=== PATIENT | male | born 1940 | race Caucasian/White ===

== ENCOUNTER 2024-01-11 09:14 | Inpatient (IN) | payer BC, OTHER ==
[~2024-01-11] VITALS: Ht 180.3 cm; Wt 99.8 kg
[2024-01-11 09:25] VITALS: BP 106/52; PULSE 92; RESP 19; TEMP 97.9; O2SAT 96
[2024-01-11 10:57] LABS: BASOPHILS # (AUTO) 0.1 K/uL (0.00-0.22); BASOPHILS % (AUTO) 0.4 % (0.0-2.0); EOSINOPHILS # (AUTO) 0.1 K/uL (0-0.4); EOSINOPHILS % (AUTO) 0.6 % (0.0-4.0); HEMATOCRIT 33.6 % (36-52); HEMOGLOBIN 11.2 g/dL (12.0-18.0); LYMPHOCYTES # (AUTO) 1.3 K/uL (2.0-11.5); LYMPHOCYTES % (AUTO) 8.7 % (20.5-51.1); MEAN CORPUSCULAR HEMOGLOBIN 29 pg (27-31); MEAN CORPUSCULAR HGB CONC 33 g/dL (33-37); MEAN CORPUSCULAR VOLUME 86.6 fL (80-94); MONOCYTES # (AUTO) 1.3 K/uL (0.8-1.0); MONOCYTES % (AUTO) 8.9 % (1.7-9.3); NEUTROPHILS # (AUTO) 11.9 K/uL (1.8-7.7); NEUTROPHILS % (AUTO) 81.4 % (42.2-75.2); PLATELET COUNT (AUTO) 286 K/uL (140-450); RED BLOOD CELL COUNT(AUTO) 3.89 MIL/uL (4.20-6.10); WHITE BLOOD COUNT (AUTO) 14.6 K/uL (4.8-10.8)
[2024-01-11] MEDS: NACL 0.9% 1,000 ML IV SCH (11:00)
[2024-01-11 11:15] LABS: ANION GAP 11.9 (8-16); CALCIUM 9.6 mg/dL (8.5-10.1); CARBON DIOXIDE 29.4 mmol/L (21-32); CHLORIDE 99 mmol/L (98-107); GLUCOSE 135 mg/dL (74-106); POTASSIUM 4.3 mmol/L (3.5-5.1); SODIUM SERUM 136 mmol/L (136-145); UREA NITROGEN, BLOOD 44 mg/dL (7-18)
[2024-01-11 11:16] LABS: INR 1.2 (0.8-1.2); PARTIAL THROMBOPLASTIN TIME 38.5 secs (22-35.6); PROTHROMBIN TIME 12.5 secs (10.8-13.4)
[2024-01-11 11:22] LABS: ALANINE AMINOTRANSFERASE 88 U/L (12-78); ALBUMIN 2.3 g/dL (3.4-5.0); ALKALINE PHOSPHATASE 304 U/L (50-136); ASPARTATE AMINOTRANSFERASE 84 U/L (15-37); BILIRUBIN,DIRECT 0.5 mg/dL (0.0-0.3); TOTAL PROTEIN, SERUM 6.9 g/dL (6.4-8.2)
[2024-01-11 11:25] LABS: LACTIC ACID 1.6 mmol/L (0.4-2.0)
[2024-01-11] MEDS ORDERED: cefTRIAXone 1,000 MG VIAL ONE (11:59)
[2024-01-11 12:07] LABS: APPEARANCE,URINE CLEAR (CLEAR); BILIRUBIN,URINE NEGATIVE (NEGATIVE); BLOOD, URINE 3+ (NEGATIVE); COLOR,URINE YELLOW (YELLOW); LEUKOCYTE ESTERASE ,URINE NEGATIVE (NEGATIVE); NITRITE, URINE NEGATIVE (NEGATIVE); PROTEIN,URINE NEGATIVE (NEGATIVE); UGLUCOSE NEGATIVE (NEGATIVE); UROBILINOGEN,URINE 0.2 EU/dL (0.2 - 1)
[2024-01-11] MEDS ORDERED: HYDR1CAP PO (12:19)
[2024-01-11] MEDS ORDERED: LORA-476 PO (12:19)
[2024-01-11] MEDS ORDERED: METF-1243 PO (12:19)
[2024-01-11] MEDS ORDERED: ATEN50TA8 PO (12:19)
[2024-01-11] MEDS ORDERED: BENA20TA PO (12:19)
[2024-01-11 12:26] LABS: RBC,URINE 20-50 /HPF (0-5); WBC,URINE 0-5 /HPF (0-5)
[2024-01-11 12:27] LABS: BACTERIA,URINE OCCASSIONAL /HPF (None Seen); SQUAMOUS EPITHELIAL CELL,UR 0-3 (FEW) /LPF (0-3 (FEW))
[2024-01-11] MEDS: LORazepam 1 MG TAB PO PRN (13:58)
[2024-01-11] MEDS: HYDROcodone/APAP 5/325 MG 1 TAB TAB PO PRN (13:59)
[2024-01-11 17:28] VITALS: PULSE 72; RESP 18; O2SAT 96
[2024-01-11 20:00] VITALS: BP 118/52; PULSE 66; PULSE 73; RESP 16; TEMP 97; O2SAT 95
[2024-01-12] VITALS (7 sets, daily range): BP systolic 116–140; BP diastolic 52–79; PULSE 68–101; RESP 16–20; TEMP 96.9–98.9; O2SAT 95–100
[2024-01-12 05:38] LABS: BASOPHILS # (AUTO) 0.1 K/uL (0.00-0.22); BASOPHILS % (AUTO) 0.9 % (0.0-2.0); EOSINOPHILS # (AUTO) 0.2 K/uL (0-0.4); EOSINOPHILS % (AUTO) 1.4 % (0.0-4.0); HEMATOCRIT 31.2 % (36-52); HEMOGLOBIN 10.2 g/dL (12.0-18.0); LYMPHOCYTES # (AUTO) 1.3 K/uL (2.0-11.5); LYMPHOCYTES % (AUTO) 10.3 % (20.5-51.1); MEAN CORPUSCULAR HEMOGLOBIN 28 pg (27-31); MEAN CORPUSCULAR HGB CONC 33 g/dL (33-37); MEAN CORPUSCULAR VOLUME 85.5 fL (80-94); MONOCYTES # (AUTO) 1.3 K/uL (0.8-1.0); MONOCYTES % (AUTO) 10.2 % (1.7-9.3); NEUTROPHILS # (AUTO) 9.9 K/uL (1.8-7.7); NEUTROPHILS % (AUTO) 77.2 % (42.2-75.2); PLATELET COUNT (AUTO) 268 K/uL (140-450); RED BLOOD CELL COUNT(AUTO) 3.65 MIL/uL (4.20-6.10); RED CELL DISTRIBUTION WIDTH 15.1 % (11.6-13.7); WHITE BLOOD COUNT (AUTO) 12.8 K/uL (4.8-10.8)
[2024-01-12 06:13] LABS: ALANINE AMINOTRANSFERASE 80 U/L (12-78); ALBUMIN 2.1 g/dL (3.4-5.0); ALKALINE PHOSPHATASE 280 U/L (50-136); ASPARTATE AMINOTRANSFERASE 76 U/L (15-37); CALCIUM 9.2 mg/dL (8.5-10.1); CHLORIDE 101 mmol/L (98-107); CREATININE 1.5 mg/dL (0.6-1.3); GLUCOSE 106 mg/dL (74-106); SODIUM SERUM 137 mmol/L (136-145); TOTAL PROTEIN, SERUM 6.4 g/dL (6.4-8.2); UREA NITROGEN, BLOOD 31 mg/dL (7-18)
[2024-01-12] MEDS: DOCUSATE SODIUM 100 MG GELCAP PO SCH (08:19)
[2024-01-12] MEDS: AZITHROMYCIN 500 MG in DEXTROSE 5% 250 ML IV SCH (09:58)
[2024-01-12] MEDS: ONDANSETRON 4 MG/2 ML VIAL IVP PRN (18:10)
[2024-01-12] MEDS: BENAZEPRIL 20 MG TAB PO SCH (21:17)
[2024-01-13] VITALS (7 sets, daily range): BP systolic 113–140; BP diastolic 53–69; PULSE 72–98; RESP 16–20; TEMP 96.7–98.1; O2SAT 93–97
[2024-01-13 05:31] LABS: BASOPHILS # (AUTO) 0.1 K/uL (0.00-0.22); EOSINOPHILS # (AUTO) 0.2 K/uL (0-0.4); EOSINOPHILS % (AUTO) 1.9 % (0.0-4.0); HEMATOCRIT 31.9 % (36-52); HEMOGLOBIN 10.3 g/dL (12.0-18.0); LYMPHOCYTES # (AUTO) 1.5 K/uL (2.0-11.5); LYMPHOCYTES % (AUTO) 11.4 % (20.5-51.1); MEAN CORPUSCULAR HEMOGLOBIN 28 pg (27-31); MEAN CORPUSCULAR HGB CONC 32 g/dL (33-37); MEAN CORPUSCULAR VOLUME 86.4 fL (80-94); MONOCYTES # (AUTO) 1.4 K/uL (0.8-1.0); MONOCYTES % (AUTO) 10.7 % (1.7-9.3); NEUTROPHILS # (AUTO) 9.7 K/uL (1.8-7.7); PLATELET COUNT (AUTO) 262 K/uL (140-450); RED BLOOD CELL COUNT(AUTO) 3.69 MIL/uL (4.20-6.10); RED CELL DISTRIBUTION WIDTH 15.2 % (11.6-13.7)
[2024-01-13 06:21] LABS: ALBUMIN 2.1 g/dL (3.4-5.0); ALKALINE PHOSPHATASE 326 U/L (50-136); ANION GAP 11.5 (8-16); ASPARTATE AMINOTRANSFERASE 133 U/L (15-37); CALCIUM 8.9 mg/dL (8.5-10.1); CARBON DIOXIDE 29.3 mmol/L (21-32); CHLORIDE 100 mmol/L (98-107); GLUCOSE 111 mg/dL (74-106); POTASSIUM 3.8 mmol/L (3.5-5.1); SODIUM SERUM 137 mmol/L (136-145); TOTAL BILIRUBIN 1.1 mg/dL (0.0-1.0); TOTAL PROTEIN, SERUM 3.9 g/dL (6.4-8.2); UREA NITROGEN, BLOOD 22 mg/dL (7-18)
[2024-01-13 06:48] LABS: ALANINE AMINOTRANSFERASE 106 U/L (12-78); CREATININE 1.3 mg/dL (0.6-1.3)
[2024-01-13] MEDS: atenoloL 50 MG TAB PO SCH (08:42)
[2024-01-13] MEDS: ZOLPIDEM 5 MG TAB PO PRN (20:14)
[2024-01-14] VITALS: BP 111/55; PULSE 76; PULSE 86; TEMP 96.5; O2SAT 90
[2024-01-14 04:00] VITALS: BP 127/64; PULSE 81; PULSE 92; TEMP 96.1; O2SAT 90
[2024-01-14 05:42] LABS: BASOPHILS # (AUTO) 0.1 K/uL (0.00-0.22); BASOPHILS % (AUTO) 0.9 % (0.0-2.0); EOSINOPHILS # (AUTO) 0.2 K/uL (0-0.4); EOSINOPHILS % (AUTO) 1.5 % (0.0-4.0); HEMATOCRIT 32.6 % (36-52); HEMOGLOBIN 10.7 g/dL (12.0-18.0); LYMPHOCYTES # (AUTO) 1.6 K/uL (2.0-11.5); LYMPHOCYTES % (AUTO) 12.1 % (20.5-51.1); MEAN CORPUSCULAR HEMOGLOBIN 28 pg (27-31); MEAN CORPUSCULAR HGB CONC 33 g/dL (33-37); MEAN CORPUSCULAR VOLUME 86.6 fL (80-94); MONOCYTES # (AUTO) 1.4 K/uL (0.8-1.0); MONOCYTES % (AUTO) 10.7 % (1.7-9.3); NEUTROPHILS # (AUTO) 10.2 K/uL (1.8-7.7); NEUTROPHILS % (AUTO) 74.8 % (42.2-75.2); PLATELET COUNT (AUTO) 262 K/uL (140-450); RED BLOOD CELL COUNT(AUTO) 3.77 MIL/uL (4.20-6.10); RED CELL DISTRIBUTION WIDTH 14.9 % (11.6-13.7); WHITE BLOOD COUNT (AUTO) 13.6 K/uL (4.8-10.8)
[2024-01-14 06:09] LABS: ALANINE AMINOTRANSFERASE 95 U/L (12-78); ALBUMIN 2.1 g/dL (3.4-5.0); ALKALINE PHOSPHATASE 309 U/L (50-136); ANION GAP 12.1 (8-16); ASPARTATE AMINOTRANSFERASE 98 U/L (15-37); CALCIUM 8.9 mg/dL (8.5-10.1); CARBON DIOXIDE 28.7 mmol/L (21-32); CHLORIDE 100 mmol/L (98-107); CREATININE 1.2 mg/dL (0.6-1.3); GLUCOSE 110 mg/dL (74-106); POTASSIUM 3.8 mmol/L (3.5-5.1); SODIUM SERUM 137 mmol/L (136-145); TOTAL BILIRUBIN 1.1 mg/dL (0.0-1.0); TOTAL PROTEIN, SERUM 6.4 g/dL (6.4-8.2); UREA NITROGEN, BLOOD 19 mg/dL (7-18)
[2024-01-14 08:00] VITALS: PULSE 67; RESP 18; O2SAT 90
[2024-01-14 08:10] VITALS: BP 117/63; PULSE 67; TEMP 96.7; O2SAT 90
[2024-01-14 09:32] VITALS: BP 117/63; PULSE 67; RESP 18; TEMP 96.7
[2024-01-14 12:34] VITALS: BP 120/60; PULSE 86; TEMP 97; O2SAT 90
[2024-01-14] MEDS ORDERED: AZIT500T PO (14:23)
[2024-01-14] MEDS ORDERED: AMOX-999 PO (14:23)
[2024-01-14] MEDS ORDERED: MUC600 PO (14:24)
[2024-01-14] MEDS ORDERED: AZIT500T8 PO (16:17)
== END 2024-01-14 15:04 | disposition home health service (06) | DRG 871 ==
LOC: MED 09:14 → MTU 12:43
PROVIDERS: ADMIT Student in an Organized Health Care Education/Training Program; ATTEND Student in an Organized Health Care Education/Training Program
DX: A41.9 Sepsis, unspecified organism (principal); J18.9 Pneumonia, unspecified organism; N17.9 Acute kidney failure, unspecified; E44.0 Moderate protein-calorie malnutrition; R31.9 Hematuria, unspecified; Z68.30 Body mass index [BMI] 30.0-30.9, adult; E78.5 Hyperlipidemia, unspecified; F41.9 Anxiety disorder, unspecified; I10 Essential (primary) hypertension; Z79.899 Other long term (current) drug therapy; H81.09 Meniere's disease, unspecified ear
CPT/HCPCS: 36415; 71045; 80048; 80053; 80076; 81001; 83605; 83880; 84484; 85025; 85610; 85730; 87040; 87081; 87086; 93005; 96361; 96365; 97110; 97116; 97163-GP; 97530; 99285; J0456; J0696; J1644; J2405; J7060; Q9967

== ENCOUNTER 2024-02-22 13:09 | Emergency (ER) | payer OTHER, BC ==
[~2024-02-22] VITALS: Ht 175.3 cm; Wt 81.6 kg
[~2024-02-22 13:09] MED LIST: AMOX-999 PO; ATEN50TA8 PO; AZIT500T PO; AZIT500T8 PO; BENA20TA PO; HYDR1CAP PO; LORA-476 PO; METF-1243 PO; MUC600 PO
[2024-02-22 13:23] VITALS: BP 139/67; PULSE 76; RESP 18; TEMP 97.9; O2SAT 98
[2024-02-22] MEDS: ACETAMINOPHEN 325 MG TAB PO ONE (14:10)
[2024-02-22 14:55] VITALS: O2SAT 98
[2024-02-22] MEDS ORDERED: BACITRACIN OINT 500 UNITS/GM PKT TP ONE (15:13)
[2024-02-22] MEDS ORDERED: ACETAMINOPHEN 325 MG TAB ONE ×2 (15:14→15:26)
[2024-02-22] MEDS ORDERED: LIDOCAINE 5% 1 EA PATCH TP ONE (15:14)
[2024-02-22] MEDS: LIDOCAINE 5% 1 EA PATCH TP ONE (15:24)
[2024-02-22] MEDS: BACITRACIN OINT 500 UNITS/GM PKT TP ONE (15:27)
[2024-02-22] MEDS ORDERED: BACI-418 TP (16:14)
[2024-02-22] MEDS ORDERED: LID5T TP (16:14)
== END 2024-02-22 16:30 | disposition home or self-care (01) ==
LOC: MED 13:09
DX: M84.48XA Pathological fracture, other site, initial encounter for fracture (principal); S51.812A Laceration without foreign body of left forearm, initial encounter; S00.83XA Contusion of other part of head, initial encounter; S50.311A Abrasion of right elbow, initial encounter; R91.8 Other nonspecific abnormal finding of lung field; E11.9 Type 2 diabetes mellitus without complications; I10 Essential (primary) hypertension; Z95.1 Presence of aortocoronary bypass graft; Z79.1 Long term (current) use of non-steroidal anti-inflammatories (NSAID); Z79.2 Long term (current) use of antibiotics; Z79.84 Long term (current) use of oral hypoglycemic drugs; Z79.899 Other long term (current) drug therapy; W18.39XA Other fall on same level, initial encounter; Y93.89 Activity, other specified; Y92.89 Other specified places as the place of occurrence of the external cause; Y99.8 Other external cause status
CPT/HCPCS: 70450; 72125; 72128; 90471; 90715; 99285